=== PATIENT | female | born 1965 | race Caucasian/White ===

== ENCOUNTER 2025-05-20 20:15 | Observation (INO) | payer OTHER ==
[2025-05-20] MEDS ORDERED: MECLIZINE HCL 25 MG TABLET (FP) ONE ×2 (21:10→23:41)
[2025-05-20] MEDS: MECLIZINE HCL 25 MG TABLET (FP) PO ONE ×2 (21:16→23:44)
[2025-05-20 22:10] LABS: ABSOLUTE IMMATURE GRANULOCYTES 0.02 x10^3/uL (0.0-0.031); BASOPHILS # 0.03 x10^3/uL (0.01-0.08); EOSINOPHIL % 1.1 % (0.7-5.8); EOSINOPHILS # 0.09 x10^3/uL (0.04-0.36); MCHC 33.3 g/dl (32.2-35.5); MEAN CELL VOLUME 90.1 fl (79.4-94.8); MEAN PLT VOLUME 9.0 fl (9.4-12.3); MONOCYTE # 0.44 x10^3/uL (0.24-0.86); MONOCYTE % 5.4 % (4.7-12.5); RDW 12.8 % (12.3-16.6)
[2025-05-20] MEDS ORDERED: METOCLOPRAMIDE HCL INJECTION 10 MG/2 ML VIAL ONE (22:19)
[2025-05-20] MEDS: METOCLOPRAMIDE HCL INJECTION 10 MG/2 ML VIAL IVPUSH ONE (22:22)
[2025-05-20] MEDS: SODIUM CHLORIDE 0.9% 500 ML INFUS.BAG IV ONE (22:22)
[2025-05-20 22:31] LABS: GLUCOSE,RANDOM 127 mg/dL (74-106); TOT PROT 9.8 g/dl (6.4-8.2)
[2025-05-20 22:33] LABS: CO2 25 mmol/L (21-32)
[2025-05-20 22:34] LABS: ALK PHOS 158 U/L (40-150)
[2025-05-20 22:37] LABS: CREATININE 0.70 mg/dL (0.55-1.3); SGOT/AST 41 U/L (5-34); SGPT/ALT 30 U/L (0-55)
[2025-05-20 22:58] LABS: HIV INTERPRETATION NEGATIVE (NEGATIVE)
[2025-05-20 23:23] LABS: HCV DIAGNOSTIC IN-HOUSE W/RFLX NON-REACTIVE (NONREACTIVE)
[2025-05-21] MEDS ORDERED: ONDANSETRON 4 MG/2 ML VIAL IVPUSH PRN (00:14)
[2025-05-21] MEDS ORDERED: ASPIRIN 325 MG ENTERIC COATED TABLET (FP) ONE (01:49)
[2025-05-21] MEDS: ASPIRIN 325 MG ENTERIC COATED TABLET (FP) PO ONE (01:52)
[2025-05-21] MEDS ORDERED: MECLIZINE HCL 25 MG TABLET (FP) ONE ×2 (05:23→15:53)
[2025-05-21] MEDS: MECLIZINE HCL 25 MG TABLET (FP) PO SCH (05:30)
[2025-05-21 05:37] VITALS: RESP 18
[2025-05-21 08:35] LABS: GLUCOSE,RANDOM 82.0 mg/dL (74-106); TOT PROT 7.1 g/dl (6.4-8.2)
[2025-05-21 08:36] LABS: CO2 20.0 mmol/L (21-32)
[2025-05-21 08:37] LABS: ALK PHOS 125.0 U/L (40-150)
[2025-05-21 08:40] LABS: SGOT/AST 25.0 U/L (5-34); SGPT/ALT 16.0 U/L (0-55)
[2025-05-21 08:41] LABS: CREATININE 0.58 mg/dL (0.55-1.3); LDL CHOLESTEROL (ONLY SJRH) 79.0 mg/dL (5-100)
[2025-05-21] MEDS ORDERED: amLODIPine BESYLATE 10 MG TABLET (FP) ONE (11:25)
[2025-05-21] MEDS ORDERED: ASPIRIN 81 MG CHEWABLE TABLETS ONE (11:25)
[2025-05-21] MEDS ORDERED: ENOXAPARIN NA (PORCINE) 40 MG/0.4 ML DISP.SYRIN SQ ONE (11:26)
[2025-05-21] MEDS: amLODIPine BESYLATE 10 MG TABLET (FP) PO SCH (12:14)
[2025-05-21] MEDS: ENOXAPARIN NA (PORCINE) 40 MG/0.4 ML DISP.SYRIN SQ SCH (12:14)
[2025-05-21] MEDS: ASPIRIN 81 MG CHEWABLE TABLETS PO SCH (12:14)
[2025-05-21] MEDS: ATORVASTATIN CA 40 MG TABLET (FP) PO SCH (22:21)
[2025-05-21 23:24] VITALS: BMI 23.5
[2025-05-22 07:16] LABS: BASOPHILS # 0.03 x10^3/uL (0.01-0.08); MONOCYTE % 8.6 % (4.7-12.5)
[2025-05-22 07:21] LABS: ABSOLUTE IMMATURE GRANULOCYTES 0.01 x10^3/uL (0.0-0.031); EOSINOPHIL % 2.7 % (0.7-5.8); EOSINOPHILS # 0.13 x10^3/uL (0.04-0.36); MCHC 32.9 g/dl (32.2-35.5); MEAN CELL VOLUME 90.4 fl (79.4-94.8); MEAN PLT VOLUME 8.8 fl (9.4-12.3); MONOCYTE # 0.41 x10^3/uL (0.24-0.86); RDW 12.9 % (12.3-16.6)
[2025-05-22 08:18] LABS: GLUCOSE,RANDOM 78.0 mg/dL (74-106)
[2025-05-22 08:19] LABS: TOT PROT 7.3 g/dl (6.4-8.2)
[2025-05-22 08:20] LABS: CO2 23.0 mmol/L (21-32)
[2025-05-22 08:21] LABS: ALK PHOS 126.0 U/L (40-150)
[2025-05-22 08:24] LABS: SGOT/AST 23.0 U/L (5-34); SGPT/ALT 17.0 U/L (0-55)
[2025-05-22 08:25] LABS: CREATININE 0.7 mg/dL (0.55-1.3)
[2025-05-22] MEDS: CARBAMIDE PEROXIDE 6.5% OTIC 15 ML BOTTLE AU SCH (12:44)
[2025-05-22 18:31] VITALS: BP 116/85; PULSE 63; TEMP 98.1
== END 2025-05-22 18:35 | disposition home or self-care (01) ==
LOC: JER 20:15 → UNDOADMOB 22:49 → JERBED 22:49 → INTOOBSV 05-21 00:09 → OBSVTOIN 05-21 00:09 → JERBED 05-21 22:14 → J4W 05-21 22:14 → JERBED 05-22 09:28 → J4W 05-22 09:28
PROVIDERS: ADMIT Internal Medicine; ATTEND Internal Medicine
PROC: 3E023GC Introduction of Other Therapeutic Substance into Muscle, Percutaneous Approach (ICD-10-PCS; principal; 2025-05-22)
PROC: 3E033GC Introduction of Other Therapeutic Substance into Peripheral Vein, Percutaneous Approach (ICD-10-PCS; 2025-05-22)
PROC: 3E0337Z Introduction of Electrolytic and Water Balance Substance into Peripheral Vein, Percutaneous Approach (ICD-10-PCS; 2025-05-22)
DX: R42 Dizziness and giddiness (principal); I10 Essential (primary) hypertension; H61.23 Impacted cerumen, bilateral
CPT/HCPCS: 36415; 70450-TC; 80053; 80061; 82550; 83036; 83735; 84100; 84484; 85025; 86803; 87389; 93005; 93010; 93306-TC; 97116-GP; 97161-GP; 99285-25; G0378